=== PATIENT | female | born 1990 | race Caucasian/White ===

== ENCOUNTER 2019-04-13 10:18 | Emergency (ER) | payer OTHER ==
[~2019-04-13] VITALS: Ht 162.6 cm; Wt 59.0 kg
[2019-04-13 10:22] VITALS: BP 117/71
--- NOTE | 2019-04-13 10:27 | NUR ---
PATIENT AMBULATED TO BED 4 AT THIS TIME.
--- NOTE | 2019-04-13 10:35 | NUR ---
28F C/O BL LOWER ABD PAIN RADIATING DOWN TO PELVIS AND BLE X3 DAYS. INTERMITENT JOSEPH, 05/08, MORE SEVERE TODAY. + NAUSEA. - VOMITING, DIARRHEA, FEVER, OR DYSURIA. DENIES VAGINAL DISCHARGE, BLEEDING. DENIES NEW/UNUSUAL FOODS OR RECENT TRAVEL. TRIED TREATING WITH HEATING PADS, ICE, NSAIDS, TYLENOL TO NO RELIEF. STATES BRINGING LEGS TO CHEST RELIEVES PAIN SOMEWHWAT. ACTIVE BS. LOWER ABD AND PELVIC AREA TENDER TO PALPATION. MEDHX:ASTHMA RX:DENIES Addendum: 04/13/19 at 1044 by SELIN PT STATES HX OF OVARIAN CYSTS
--- NOTE | 2019-04-13 10:54 | NUR ---
DR ALEMAN EVALUATING PATIENT AT BEDSIDE
[2019-04-13] MEDS ORDERED: MORPHINE SULFATE 4 MG/ML SYR IM ONE (11:00)
[2019-04-13 11:20] VITALS: BP 111/69
== END 2019-04-13 11:20 | disposition home or self-care (01) ==
LOC: MED 10:18
DX: R10.30 Lower abdominal pain, unspecified (principal); R11.0 Nausea; J45.909 Unspecified asthma, uncomplicated; Z90.49 Acquired absence of other specified parts of digestive tract; Z98.890 Other specified postprocedural states; Z88.0 Allergy status to penicillin; Z88.1 Allergy status to other antibiotic agents; Z88.2 Allergy status to sulfonamides
CPT/HCPCS: 81002; 81025; 96372; 99283; J2270